=== PATIENT | male | born 1995 | race Caucasian/White ===

== ENCOUNTER 2017-07-14 12:16 | Emergency (ER) | payer OTHER ==
[~2017-07-14] VITALS: Ht 190.5 cm; Wt 85.3 kg
[2017-07-14 12:22] VITALS: BP 153/83
[2017-07-14 12:48] VITALS: BP 153/83
== END 2017-07-14 12:48 | disposition home or self-care (01) ==
LOC: MED 12:16
DX: S06.0X9A Concussion with loss of consciousness of unspecified duration, initial encounter (principal); X58.XXXA Exposure to other specified factors, initial encounter; Y93.89 Activity, other specified; Y92.89 Other specified places as the place of occurrence of the external cause; Y99.8 Other external cause status
CPT/HCPCS: 99281